=== PATIENT | male | born 1955 | race Caucasian/White ===

== ENCOUNTER 2017-07-18 05:30 | Inpatient (IN) | payer BC ==
[2017-07-18] MEDS ORDERED: SURGIFOAM POWDER 1 GM KIT (06:46)
[2017-07-18] MEDS ORDERED: POLYMYXIN/BACITRACIN 1L IRRIG (06:47)
[2017-07-18] MEDS ORDERED: HEPARIN 1000 UNITS/ML 10 ML INJ (07:07)
[2017-07-18] MEDS ORDERED: LIDOCAINE 1% (MDV) 20 ML INJ (07:22)
[2017-07-18] MEDS ORDERED: PROPOFOL 20 ML (07:22)
[2017-07-18] MEDS ORDERED: SUCCINYLCHOLINE CHLORIDE 100 MG/5 ML SYG IV ×2 (07:22→08:30)
[2017-07-18] MEDS ORDERED: ROCURONIUM 50 MG INJ ×3 (07:22→09:39)
[2017-07-18] MEDS ORDERED: PROVENTIL HFA 6.7GM INHALER (07:22)
[2017-07-18] MEDS ORDERED: MIDAZOLAM 1 MG/ML 2 ML INJ (07:23)
[2017-07-18] MEDS ORDERED: NALOXONE (0.4 MG/ML) INJ IV (07:30)
[2017-07-18] MEDS ORDERED: AL HYDROX/MG HYDROX/SIMETH 30 ML CUP PO (07:30)
[2017-07-18] MEDS ORDERED: ACETAMINOPHEN 325 MG TAB PO (07:30)
[2017-07-18] MEDS ORDERED: CEPASTAT LOZENGE MT (07:30)
[2017-07-18] MEDS ORDERED: BISACODYL 10 MG SUPP PR (07:30)
[2017-07-18] MEDS ORDERED: ONDANSETRON 4 MG INJ IV ×2 (07:30→12:00)
[2017-07-18] MEDS ORDERED: DIPHENHYDRAMINE 25 MG CAP PO (07:30)
[2017-07-18] MEDS ORDERED: DIPHENHYDRAMINE 50 MG INJ IV (07:30)
[2017-07-18] MEDS ORDERED: THROMBIN 5000 UNIT VIAL ×2 (07:34→08:58)
[2017-07-18] MEDS ORDERED: EPHEDrine SULFATE 50 MG/5 ML SYG ×2 (08:00→12:02)
[2017-07-18] MEDS: CEFAZOLIN 1 GM/50 ML (PMX) 50 ML IVPB ×3 (08:01→22:47)
[2017-07-18] MEDS ORDERED: DEXAMETHASONE 4 MG/ML 1 ML INJ (08:31)
[2017-07-18] MEDS ORDERED: ONDANSETRON 4 MG INJ (08:31)
[2017-07-18] MEDS ORDERED: FAMOTIDINE 20 MG INJ (08:31)
[2017-07-18] MEDS ORDERED: GELATIN SIZE 100 SPONGE (08:57)
[2017-07-18] MEDS: CEFAZOLIN 1 GM INJ (09:10)
[2017-07-18] MEDS: GELATIN SIZE 100 SPONGE (09:10)
[2017-07-18] MEDS: BUPIVACAINE 0.5%/EPI (SDV) 30 ML INJ (09:10)
[2017-07-18] MEDS: THROMBIN 5000 UNIT VIAL (09:11)
[2017-07-18] MEDS ORDERED: HYDROmorphONE 2 MG/ML SYG (10:01)
[2017-07-18] MEDS ORDERED: SUGAMMADEX SODIUM 200 MG/2 ML VIAL IV (11:56)
[2017-07-18] MEDS ORDERED: PROCHLORPERAZINE 10 MG INJ IV (12:00)
[2017-07-18] MEDS ORDERED: HYDROmorphONE (0.2 MG/ML) 10ML SYG IV ×2 (12:00)
[2017-07-18] MEDS ORDERED: FENTAnyl 50 MCG/ML VIAL IV (12:00)
[2017-07-18] MEDS ORDERED: LABETALOL HCL 20MG INJ IV (12:00)
[2017-07-18] MEDS ORDERED: hydrALAzine 20 MG INJ IV (12:00)
[2017-07-18] MEDS: HYDROmorphONE 0.2 MG/ML PCA IV ×3 (12:51→23:23)
[2017-07-18] MEDS: FERROUS SULFATE (EC) 325 MG TAB PO ×3 (13:00→20:18)
[2017-07-18] MEDS: DOCUSATE SODIUM 100 MG CAP PO ×2 (14:05→20:19)
[2017-07-18] MEDS: HYDROmorphONE (0.2 MG/ML) 10ML SYG IV (14:08)
[2017-07-18] MEDS: MEPERIDINE 25 MG INJ IV (14:08)
[2017-07-18] MEDS: FENTAnyl 50 MCG/ML VIAL IV ×2 (14:08→15:16)
[2017-07-18] MEDS: MIDAZOLAM 1 MG/ML 2 ML INJ IV (14:09)
[2017-07-18] MEDS: DIPHENHYDRAMINE 50 MG INJ IV (14:09)
[2017-07-18] MEDS: ASCORBIC ACID 500 MG TAB PO (15:05)
[2017-07-18] MEDS: CYCLOBENZAPRINE 10 MG TAB PO (16:21)
[2017-07-18] MEDS ORDERED: ZOLPIDEM 5 MG TAB PO (17:00)
[2017-07-18] MEDS: D5W-0.45 NACL + KCL 20 MEQ 1,000 ML IV ×2 (17:03→19:13)
[2017-07-18] MEDS: FLUTICASONE 0.05% 16 GM NAS SPRAY NASAL (20:19)
[2017-07-18] MEDS ORDERED: PATIENT'S OWN MEDICATION PO (21:00)
[2017-07-18] MEDS: KETOROLAC 30 MG INJ IV (21:51)
[2017-07-19] MEDS: ZOLPIDEM 5 MG TAB PO ×2 (00:14→20:42)
[2017-07-19] MEDS: CYCLOBENZAPRINE 10 MG TAB PO ×4 (00:14→19:23)
[2017-07-19] MEDS: HYDROmorphONE 0.2 MG/ML PCA IV ×3 (03:23→13:02)
[2017-07-19] MEDS: D5W-0.45 NACL + KCL 20 MEQ 1,000 ML IV (03:23)
[2017-07-19 05:17] LABS: ADD MAN DIFF? NO
[2017-07-19 05:20] LABS: BASOPHILS % 0.5 % (0.0-2.0); EOSINOPHILS % 0.3 % (0.0-7.0); HEMATOCRIT 38.5 % (42.0-52.0); HEMOGLOBIN 12.6 g/dl (14.0-18.0); LYMPHOCYTES # 1.3 10^3/ul (0.8-2.9); LYMPHOCYTES % 14.3 % (15.0-51.0); MEAN CORPUSCULAR HEMOGLOBIN 32.8 pg (29.0-33.0); MEAN CORPUSCULAR HGB CONC 32.7 g/dl (32.0-37.0); MEAN CORPUSCULAR VOLUME 100.3 fl (82.0-101.0); MEAN PLATELET VOLUME 9.1 fl (7.4-10.4); MONOCYTE # 0.8 10^3/ul (0.3-0.9); MONOCYTES % 8.7 % (0.0-11.0); NEUTROPHIL # 6.7 10^3/ul (1.6-7.5); NEUTROPHILS % 75.9 % (39.0-77.0); PLATELET COUNT 178 10^3/UL (140-415); RED BLOOD COUNT 3.84 10^6/ul (4.70-6.10); RED CELL DISTRIBUTION WIDTH 13.5 % (11.5-14.5)
[2017-07-19 05:20] LABS: WHITE BLOOD COUNT 8.8 10^3/ul (4.8-10.8)
[2017-07-19 05:47] LABS: ANION GAP 11 (8-16); BLOOD UREA NITROGEN 11 mg/dl (7-20); CALCIUM 8.4 mg/dl (8.4-10.2); CARBON DIOXIDE 27 mmol/L (21-31); CHLORIDE 101 mmol/L (97-110); CREATININE 0.94 mg/dl (0.61-1.24); GLUCOSE 101 mg/dl (70-220); MAGNESIUM 1.5 mg/dl (1.7-2.5); POTASSIUM 3.8 mmol/L (3.5-5.1); SODIUM 135 mmol/L (135-144)
[2017-07-19] MEDS: PANTOPRAZOLE 40 MG INJ IV (06:06)
[2017-07-19] MEDS: SERTRALINE 50 MG TAB PO (08:55)
[2017-07-19] MEDS: BUPROPION (XL) 150 MG TAB PO (08:55)
[2017-07-19] MEDS: FERROUS SULFATE (EC) 325 MG TAB PO ×3 (08:55→20:42)
[2017-07-19] MEDS: DOCUSATE SODIUM 100 MG CAP PO ×2 (08:55→20:42)
[2017-07-19] MEDS: ASCORBIC ACID 500 MG TAB PO (08:56)
[2017-07-19] MEDS: FLUTICASONE 0.05% 16 GM NAS SPRAY NASAL ×2 (08:56→20:44)
[2017-07-19] MEDS ORDERED: OXYCODONE/ACETAMINOPHEN (10/325) TAB PO (09:30)
[2017-07-19] MEDS: MAGNESIUM SULFATE 3 GM in DEXTROSE 5% 100 ML IVPB (11:41)
[2017-07-19] MEDS: DIAZEPAM 5 MG TAB PO ×2 (11:41→18:35)
[2017-07-19] MEDS: OXYCODONE/ACETAMINOPHEN (10/325) TAB PO ×2 (16:01→20:43)
[2017-07-19] MEDS: clonAZEPAM 0.5 MG TAB PO (19:23)
[2017-07-20] MEDS: CYCLOBENZAPRINE 10 MG TAB PO ×2 (02:41→14:59)
[2017-07-20] MEDS: OXYCODONE/ACETAMINOPHEN (10/325) TAB PO ×6 (02:42→22:12)
[2017-07-20] MEDS: DIAZEPAM 5 MG TAB PO ×2 (04:17→17:14)
[2017-07-20 05:40] LABS: ADD MAN DIFF? NO
[2017-07-20 05:43] LABS: WHITE BLOOD COUNT 7.4 10^3/ul (4.8-10.8)
[2017-07-20 05:43] LABS: BASOPHILS % 0.3 % (0.0-2.0); EOSINOPHILS % 0.3 % (0.0-7.0); HEMATOCRIT 33.1 % (42.0-52.0); HEMOGLOBIN 11.2 g/dl (14.0-18.0); LYMPHOCYTES # 0.7 10^3/ul (0.8-2.9); LYMPHOCYTES % 8.9 % (15.0-51.0); MEAN CORPUSCULAR HEMOGLOBIN 33.3 pg (29.0-33.0); MEAN CORPUSCULAR HGB CONC 33.8 g/dl (32.0-37.0); MEAN CORPUSCULAR VOLUME 98.5 fl (82.0-101.0); MEAN PLATELET VOLUME 9.5 fl (7.4-10.4); MONOCYTE # 0.8 10^3/ul (0.3-0.9); MONOCYTES % 10.3 % (0.0-11.0); NEUTROPHIL # 5.9 10^3/ul (1.6-7.5); NEUTROPHILS % 79.3 % (39.0-77.0); PLATELET COUNT 152 10^3/UL (140-415); RED BLOOD COUNT 3.36 10^6/ul (4.70-6.10); RED CELL DISTRIBUTION WIDTH 13.2 % (11.5-14.5)
[2017-07-20 06:17] LABS: PHOSPHORUS 2.8 mg/dl (2.5-4.9)
[2017-07-20 06:19] LABS: ANION GAP 11 (8-16); BLOOD UREA NITROGEN 9 mg/dl (7-20); CALCIUM 8.2 mg/dl (8.4-10.2); CARBON DIOXIDE 27 mmol/L (21-31); CHLORIDE 102 mmol/L (97-110); CREATININE 0.88 mg/dl (0.61-1.24); GLUCOSE 127 mg/dl (70-220); MAGNESIUM 2.2 mg/dl (1.7-2.5); POTASSIUM 3.6 mmol/L (3.5-5.1); SODIUM 136 mmol/L (135-144)
[2017-07-20] MEDS: PANTOPRAZOLE (EC) 40 MG TAB PO (06:22)
[2017-07-20] MEDS: FLUTICASONE 0.05% 16 GM NAS SPRAY NASAL ×2 (10:28→20:18)
[2017-07-20] MEDS: FERROUS SULFATE (EC) 325 MG TAB PO ×3 (10:28→20:18)
[2017-07-20] MEDS: DOCUSATE SODIUM 100 MG CAP PO ×2 (10:28→20:18)
[2017-07-20] MEDS: ASCORBIC ACID 500 MG TAB PO (10:28)
[2017-07-20] MEDS: SERTRALINE 50 MG TAB PO (10:28)
[2017-07-20] MEDS: BUPROPION (XL) 150 MG TAB PO (10:28)
[2017-07-20] MEDS: ZOLPIDEM 5 MG TAB PO (21:03)
[2017-07-21] MEDS: clonAZEPAM 0.5 MG TAB PO (01:22)
[2017-07-21] MEDS: OXYCODONE/ACETAMINOPHEN (10/325) TAB PO ×3 (02:20→18:41)
[2017-07-21] MEDS: PANTOPRAZOLE (EC) 40 MG TAB PO (06:00)
[2017-07-21 06:14] LABS: ADD MAN DIFF? NO
[2017-07-21 06:26] LABS: WHITE BLOOD COUNT 5.8 10^3/ul (4.8-10.8)
[2017-07-21 06:26] LABS: BASOPHILS % 0.3 % (0.0-2.0); EOSINOPHILS # 0.1 10^3/ul (0.0-0.5); EOSINOPHILS % 1.2 % (0.0-7.0); HEMATOCRIT 30.3 % (42.0-52.0); HEMOGLOBIN 10.4 g/dl (14.0-18.0); LYMPHOCYTES # 0.9 10^3/ul (0.8-2.9); LYMPHOCYTES % 14.7 % (15.0-51.0); MEAN CORPUSCULAR HEMOGLOBIN 33.5 pg (29.0-33.0); MEAN CORPUSCULAR HGB CONC 34.3 g/dl (32.0-37.0); MEAN CORPUSCULAR VOLUME 97.7 fl (82.0-101.0); MEAN PLATELET VOLUME 9.6 fl (7.4-10.4); MONOCYTE # 0.6 10^3/ul (0.3-0.9); MONOCYTES % 11.1 % (0.0-11.0); NEUTROPHIL # 4.2 10^3/ul (1.6-7.5); NEUTROPHILS % 72.2 % (39.0-77.0); PLATELET COUNT 158 10^3/UL (140-415); RED CELL DISTRIBUTION WIDTH 13.2 % (11.5-14.5)
[2017-07-21 06:47] LABS: ANION GAP 13 (8-16); BLOOD UREA NITROGEN 10 mg/dl (7-20); CALCIUM 8.1 mg/dl (8.4-10.2); CARBON DIOXIDE 24 mmol/L (21-31); CHLORIDE 102 mmol/L (97-110); CREATININE 0.73 mg/dl (0.61-1.24); GLUCOSE 99 mg/dl (70-220); MAGNESIUM 1.9 mg/dl (1.7-2.5); POTASSIUM 3.4 mmol/L (3.5-5.1); SODIUM 136 mmol/L (135-144)
[2017-07-21] MEDS: FERROUS SULFATE (EC) 325 MG TAB PO ×2 (10:34→12:34)
[2017-07-21] MEDS: FLUTICASONE 0.05% 16 GM NAS SPRAY NASAL (10:34)
[2017-07-21] MEDS: SERTRALINE 50 MG TAB PO (10:35)
[2017-07-21] MEDS: ASCORBIC ACID 500 MG TAB PO (10:35)
[2017-07-21] MEDS: POTASSIUM CHLORIDE (SR) 20 MEQ TAB PO (10:35)
[2017-07-21] MEDS: BUPROPION (XL) 150 MG TAB PO (10:35)
[2017-07-21] MEDS: DOCUSATE SODIUM 100 MG CAP PO (10:35)
[2017-07-21 13:48] LABS: ADD UMIC YES; UR ASCORBIC ACID 40 mg/dL (NEGATIVE); UR BILIRUBIN (Dip) NEGATIVE (NEGATIVE); UR BLOOD (Dip) NEGATIVE (NEGATIVE); UR CLARITY CLEAR (CLEAR); UR COLOR AMBER (YELLOW); UR GLUCOSE (Dip) NEGATIVE (NEGATIVE); UR KETONES (Dip) 1+ mg/dL (NEGATIVE); UR LEUKOCYTE ESTERASE (Dip) NEGATIVE Leu/ul (NEGATIVE); UR MUCUS FEW /HPF (NONE SEEN); UR NITRITE (Dip) NEGATIVE (NEGATIVE); UR RBC 2 /HPF (0-5); UR SPECIFIC GRAVITY (Dip) 1.027 (1.003-1.030); UR TOTAL PROTEIN (Dip) 1+ mg/dl (NEGATIVE); UR UROBILINOGEN (Dip) 2+ mg/dL (NEGATIVE); UR WBC 3 /HPF (0-5)
[2017-07-21] MEDS: HYDROmorphONE 0.5 MG/0.5 ML SYG IV (14:53)
[2017-07-21] MEDS: DIAZEPAM 5 MG TAB PO (15:51)
== END 2017-07-21 19:15 | disposition home or self-care (01) | DRG 455 ==
LOC: REC 05:30 → MS1 15:58
PROC: 0SG00A0 Fusion of Lumbar Vertebral Joint with Interbody Fusion Device, Anterior Approach, Anterior Column, Open Approach (ICD-10-PCS; principal; 2017-07-18 07:00)
PROC: 0SG00K1 Fusion of Lumbar Vertebral Joint with Nonautologous Tissue Substitute, Posterior Approach, Posterior Column, Open Approach (ICD-10-PCS; 2017-07-18 07:00)
PROC: 0SG30K1 Fusion of Lumbosacral Joint with Nonautologous Tissue Substitute, Posterior Approach, Posterior Column, Open Approach (ICD-10-PCS; 2017-07-18 07:00)
PROC: 0SG30A0 Fusion of Lumbosacral Joint with Interbody Fusion Device, Anterior Approach, Anterior Column, Open Approach (ICD-10-PCS; 2017-07-18 07:00)
PROC: 0ST20ZZ Resection of Lumbar Vertebral Disc, Open Approach (ICD-10-PCS; 2017-07-18 07:00)
PROC: 0ST40ZZ Resection of Lumbosacral Disc, Open Approach (ICD-10-PCS; 2017-07-18 07:00)
PROC: 07DR3ZZ Extraction of Iliac Bone Marrow, Percutaneous Approach (ICD-10-PCS; 2017-07-18 07:00)
PROC: 4A11X4G Monitoring of Peripheral Nervous Electrical Activity, Intraoperative, External Approach (ICD-10-PCS; 2017-07-18 07:00)
DX: M51.17 Intervertebral disc disorders with radiculopathy, lumbosacral region (principal); E83.42 Hypomagnesemia; I10 Essential (primary) hypertension; M51.16 Intervertebral disc disorders with radiculopathy, lumbar region; E78.5 Hyperlipidemia, unspecified; M48.061 Spinal stenosis, lumbar region without neurogenic claudication; M48.07 Spinal stenosis, lumbosacral region; F41.9 Anxiety disorder, unspecified
CPT/HCPCS: 72020; 72114; 80048; 81001; 83735; 84100; 85025; 86850; 86900; 86901; 86920; 86999; 87086; 88304; 97110; 97116; 97163; 97530